=== PATIENT | female | born 1980 | race Caucasian/White ===

== ENCOUNTER 2018-03-03 10:02 | Emergency (ER) | payer SELFPAY ==
[~2018-03-03] VITALS: Ht 162.6 cm; Wt 77.1 kg
[2018-03-03] MEDS ORDERED: NKM (10:17)
[2018-03-03 10:24] VITALS: BP 133/86
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
[2018-03-03] MEDS ORDERED: CYCLOBENZAPRINE10 MG ORAL (11:01)
[2018-03-03] MEDS ORDERED: IBUPROFEN600 MG ORAL (11:01)
[2018-03-03 11:26] VITALS: BP 133/86
--- NOTE | 2018-03-03 11:27 | NUR ---
ED Nurse Note:wrist splint was placed on left arm, pt. received d/c instructions with prescriptions and they left ER condition stable
== END 2018-03-03 11:30 | disposition home or self-care (01) ==
LOC: EMR 11:15
DX: M25.532 Pain in left wrist (principal); M54.9 Dorsalgia, unspecified; H92.01 Otalgia, right ear
CPT/HCPCS: 99282